=== PATIENT | male | born 1995 | race Caucasian/White ===

== ENCOUNTER 2021-02-02 17:21 | Emergency (ER) | payer MEDICAID, OTHER ==
[~2021-02-02] VITALS: Ht 167.7 cm; Wt 104.3 kg
--- NOTE | 2021-02-02 17:44 | ED Fall/Injury ---
General Chief Complaint: Trauma-Non Activation Stated Complaint: FALL Nursing Triage Note: PT BROUGHT IN BY [facility] FROM HOME WITH COMPLAINT OF FALL. PT WAS CLEANING OUT GUTTERS WHEN THE LADDER SLIPPED FALLING 7-8 FEET. PT DENIES LOC OR HITTING HEAD. COMPLAINING OF RIGHT KNEE PAIN. GIVEN 100MCG OF FENTANYL EN ROUTE. Source: patient Exam Limitations: no limitations History of Present Illness Date Seen by Provider: Feb 02, 2021 Time Seen by Provider: 17:42 Initial Comments To ER by EMS with reports of right knee pain. He was up on a ladder cleaning gutters when his leg slipped between the steps on the ladder causing it to tip. He did not hit his head or lose consciousness. He denies pain to the upper extremities chest abdomen pelvis or back. His only complaint of pain is to the right knee. EMS arrived and gave a total of 100 mcg of fentanyl for the knee pain. He is otherwise healthy and takes no medication. Occurred: this evening Severity: moderate Injuries/Pain Location: lower extremity Context: unknown Loss of Consciousness: no loss of consciousness Associated Symptoms (Fall): Denies Symptoms Allergies and Home Medications Allergies Coded Allergies: Penicillins (Verified Allergy, Unknown, 02/02/21) Sulfa (Sulfonamide Antibiotics) (Verified Allergy, Unknown, 02/02/21) cephalexin (Verified Allergy, Unknown, 02/02/21) Patient Home Medication List Home Medication List Reviewed: Yes Review of Systems Review of Systems Constitutional: see HPI Eyes: No Symptoms Reported Ears, Nose, Mouth, Throat: no symptoms reported Respiratory: no symptoms reported Cardiovascular: no symptoms reported Genitourinary: no symptoms reported Musculoskeletal: see HPI Skin: no symptoms reported Psychiatric/Neurological: No Symptoms Reported Past Jvhwrxy-Fvdpvb-Icizrp Hx Patient Social History Tobacco Use?: No Use of E-Cig and/or Vaping dev: No Substance use?: No Alcohol Use?: No Pt feels they are or have been: No Immunizations Up To Date First/Initial COVID19 Vaccinat: NO Second COVID19 Vaccination Reggie: NO Third COVID19 Vaccination Date: NO Physical Exam Vital Signs Vital Signs - First Documented 02/02/21 17:21 Temp 36.6 Pulse 105 Resp 20 B/P (MAP) 190/96 (127) Pulse Ox 94 O2 Delivery Room Air Capillary Refill : Height, Weight, BMI Height: '" Weight: lbs. oz. kg; 37.00 BMI Method: General Appearance: WD/WN, no apparent distress Neck: non-tender, full range of motion Respiratory: no respiratory distress, no accessory muscle use Gastrointestinal: normal bowel sounds, non tender, soft Extremities: normal range of motion, non-tender, other (Pain with any range of motion of the right knee but there is no swelling at this time no abrasion or laceration. He has a strong dorsalis pedis pulse with normal sensation and motor function of the foot.) Neurologic/Psychiatric: alert, normal mood/affect, oriented x 3 Skin: normal color, warm/dry Mendez Coma Score Best Eye Response: (4) Open Spontaneously Best Verbal Response: (5) Oriented Best Motor Response: (6) Obeys Commands [place] Total: 15 Progress/Results/Core Measures Results/Orders My Orders Orders - CANDICE TRINIDAD APRN Knee, Right, 3 Views (02/02/21 17:34) Morphine Injection (Morphine Injection (02/02/21 17:52) Vital Signs/I&O 02/02/21 17:21 Temp 36.6 Pulse 105 Resp 20 B/P (MAP) 190/96 (127) Pulse Ox 94 O2 Delivery Room Air Blood Pressure Mean: 127 Departure Communication (Admissions) Family Conversation NAME: GREGG PEREZ MED REC#: [id number] PT STATUS: REG ER : 1995 PHYSICIAN: CANDICE TRINIDAD APRN ADMIT DATE: 02/02/21/ER Signed Date of Exam:02/02/21 KNEE, RIGHT, 3 VIEWS INDICATION: Knee pain. COMPARISON: None available. TECHNIQUE: Three radiographs of the right knee dated February 02, 2021. FINDINGS: No acute fracture or dislocation. No destructive osseous process. Minimal medial joint space narrowing. The lateral compartment is well maintained. No significant osteophytosis. No knee joint effusion. No suspicious radiopaque foreign body. IMPRESSION: No acute osseous abnormality with very minimal degenerative changes present. Dictated by: Dictated on workstation # [id number] Dict: 02/02/211802 Trans: 02/02/211807 [id number] Interpreted by: BLUE REYEZ MD Electronically signed by: BLUE ERYEZ MD 02/02/211807 Impression Primary Impression: Internal derangement of knee Disposition: HOME, SELF-CARE Condition: Stable Departure-Patient Inst. Decision time for Depature: 18:11 Referrals: OSMIN HASSAN BETHANY N MD HUDSON, CASEY V DO HUERTER, DAVID F MD NO,LOCAL PHYSICIAN (PCP) Primary Care Physician Patient Instructions: Internal Derangement of the Knee Add. Discharge Instructions: 1. Return to ER for any concerns 2. Follow-up with your doctor next week 3. If you do not have your doctor call one of the physicians listed to make an appointment to be seen. Further evaluation will likely include MRI of the knee if the pain fails to improve. Wear the knee immobilizer when you are up moving around, pain medication as directed and crutches when walking. All discharge instructions reviewed with patient and/or family. Voiced understanding. Scripts Hydrocodone/Acetaminophen (Hydrocodone-Acetamin 5-325 mg) 1 Each Tablet 1 TAB PO Q4H PRN for PAIN-MODERATE (5-7), #14 TAB Prov: CANDICE TRINIDAD APRN 02/02/21 Work/School Note: Work Release Form Date Seen in the Emergency Department: Feb 02, 2021 Return to Work: Feb 04, 2021 CANDICE TRINIDAD APRN Feb 02, 2021 17:44
[2021-02-02] MEDS ORDERED: morphine INJ 10 MG/ML 1ML (SYR OR VIAL) IVP STA (17:52)
--- NOTE | 2021-02-02 18:08 | Diagnostic Imaging Report ---
INDICATION: Knee pain. COMPARISON: None available. TECHNIQUE: Three radiographs of the right knee dated February 02, 2021. FINDINGS: No acute fracture or dislocation. No destructive osseous process. Minimal medial joint space narrowing. The lateral compartment is well maintained. No significant osteophytosis. No knee joint effusion. No suspicious radiopaque foreign body. IMPRESSION: No acute osseous abnormality with very minimal degenerative changes present. Dictated by: Dictated on workstation # [id number]
[2021-02-02] MEDS ORDERED: ACHD5005 PO (18:13)
[2021-02-02 18:49] VITALS: BP 153/96
== END 2021-02-02 18:49 | disposition home or self-care (01) ==
LOC: ER 17:27
DX: M23.91 Unspecified internal derangement of right knee (principal)
CPT/HCPCS: 73562; 99284; L1830

== ENCOUNTER → 2021-02-07 | Outpatient (CLI) | payer MEDICAID ==
[~2021-02-07] MED LIST: ACHD5005 PO
== END ==
LOC: ORTHO 13:02
PROVIDERS: ATTEND Orthopaedic Surgery
DX: S80.01XA Contusion of right knee, initial encounter (principal); X58.XXXA Exposure to other specified factors, initial encounter
CPT/HCPCS: 99202

== ENCOUNTER → 2021-02-21 | Outpatient (CLI) | payer MEDICAID | LOC: ORTHO 13:30 | PROVIDERS: ATTEND Orthopaedic Surgery | DX: S80.01XA Contusion of right knee, initial encounter (principal); X58.XXXA Exposure to other specified factors, initial encounter | CPT/HCPCS: 99212 ==